=== PATIENT | female | born 1990 | race Caucasian/White ===

== ENCOUNTER 2021-04-23 16:08 | Inpatient (IN) | payer BC ==
[~2021-04-23] VITALS: Ht 162.6 cm; Wt 79.5 kg
[2021-04-23] VITALS (22 sets, daily range): BP systolic 101–147; BP diastolic 60–75; PULSE 70–88; TEMP 97.5–98.1
--- NOTE | 2021-04-23 16:10 | NUR ---
Admits to L&D for c/o contractions beginning around 1330 this afternoon, every 2-3 minutes apart. C/O back labor. Denies any leaking of fluid, vaginal bleeding. Reports positive movement. States she was 2 cm dilated at last OB visit.
--- NOTE | 2021-04-23 16:27 | NUR ---
Allowed off of EFM at this time, as noted Category I strip, intermittent monitoring per protocol. Assisted up to birthing ball for comfort per patient request.
[2021-04-23] MEDS ORDERED: PRENATAL TABLET PO (16:42)
[2021-04-23] MEDS ORDERED: LEXAPRO20 MG (16:42)
[2021-04-23] MEDS ORDERED: SYNTHROID0.075 MG/T PO (16:42)
--- NOTE | 2021-04-23 17:10 | NUR ---
Placed back on EFM @ this time, repeat SVE completed.
--- NOTE | 2021-04-23 17:16 | NUR ---
Ana Pickard CRNA, notified of patient admission status, .
--- NOTE | 2021-04-23 17:30 | NUR ---
x3 unsuccessful IV start attempts by this newswriter.
--- NOTE | 2021-04-23 17:35 | NUR ---
and Ana Pickard CRNA, in-house.
--- NOTE | 2021-04-23 17:40 | NUR ---
Donna Larsen RN, in to attempt IV start, unsuccessful.
--- NOTE | 2021-04-23 17:50 | NUR ---
Ana Pickard CRNA, in to attempt IV start.
--- NOTE | 2021-04-23 17:54 | NUR ---
Allowed off of EFM during epidural placement, as noted Category I strip, no oxytocin infusing at this time.
--- NOTE | 2021-04-23 18:09 | NUR ---
Placed back on EFM following epidural placement.
--- NOTE | 2021-04-23 18:14 | NUR ---
assessment technician here to draw, as noted, unable to obtain lab work off of IV start.
[2021-04-23 18:34] LABS: BASO # 0.1 (0.0-0.2); BASO % 0.4 % (0.0-2.0); EOS % 0.1 % (0-4.0); GRAN # 11.5 (1.4-6.5); GRAN % 80.2 % (42.2-75.2); LYMPH # 1.9 (1.2-3.4); LYMPH % 13.4 % (20.0-51.0); MEAN CELL VOLUME 94 fl (80.0-100.0); MEAN CORPUSCULAR HEMOGLOBIN 32 pg (27.0-31.0); MEAN CORPUSCULAR HGB CONC 34 g/dl (33.0-37.0); MEAN PLATELET VOLUME 9.2 fl (7.4-10.4); MONO # 0.8 (0.1-0.6); MONO % 5.3 % (1.7-9.3); PLATELET COUNT 276 K/mm3 (130-400); RED BLOOD COUNT 3.47 M/mm3 (4.10-5.30); REDCELL DISTRIBUTION WIDTH-CV 14.3 % (11.5-14.5)
[2021-04-23 18:37] LABS: HEMATOCRIT 32.6 % (37.0-47.0)
--- NOTE | 2021-04-23 18:50 | NUR ---
1836- ROLES IN ROOM TO PERFORM AROM, SVE OF 5/70-80/-2, CLEAR FLUID. PT IS NAUSEATED. 183- ZOFRAN 4MG IV GIVEN. 184- LATE DECEL NOTED, PT REMAINS NAUSEATED, BP DOWN AT 104/67. 184- EPHEDRINE 10MG IV GIVEN. 1850- BP INCREASED TO 123/69, NO FURTHER LATE DECELS NOTED WITH FHT'S RUNNING AT BASELINE OF 125 WITH MODERATE VARIABILITY, PT STATES NAUSEA HAS SUBSIDED.
--- NOTE | 2021-04-23 21:18 | NUR ---
2050- PT CALLS OUT FOR ASSISTANCE, STATES FEELING NAUSEOUS. 2052- BP DOWN AT 90/53, EPHEDRINE 10MG IV GIVEN. 2055- BP INCREASED TO 121/69, PT STATES NAUSEA SUBSIDING. 2099- SVE OF COMPLETE/0. THIS NURSE OUT OF ROOM TO GATHER SUPPLIES FOR DELIVERY. PT RESTING COMFORTABLY WITH EPIDURAL. 2105- CHAU DC'D 225ML URINE OUT. PERICARE PROVIDED. 2109- ONE PRACTICE PUSH WITH THIS NURSE. PT PUSHING WELL, INSTRUCTED TO STOP. 2110- DR. BROWNING CALLED FOR DELIVERY. HEART TONES LOST, ATTEMPTING TO ADJUST US. 2111- CONTINUE DIFFICULTY TRACING FHT'S, COVERS PULLED BACK, HEAD HAD DELIVERED. PT INSTRUCTED TO PUSH. SPONTANEOUS VAGINAL DELIVERY OF VIABLE BABY GIRL. FOB INSTRUCTED TO PULL CALL LIGHT FOR ASSISTANCE. BABY DRIED AND STIMULATED. EVE, RN, Jalen FAJARDO, RN IN ROOM TO ASSIST. CORD CLAMPED AND CUT BY THIS NURSE. BABY TO MOTHER'S CHEST, BABY CARES ASSUMED BY Vanessa BAH RN. 2113- ROLES IN ROOM. 2117- SPONTANEOUS DELIVERY OF INTACT PLACENTA, PITOCIN STARTED AT 333ML/HR PER PROTOCOL. NO REPAIR NECESSARY. 2124- RECOVERY STARTED.
[2021-04-24 00:10] VITALS: BP 95/54; PULSE 74
--- NOTE | 2021-04-24 01:05 | NUR ---
PT'S LEFT LEG REMAINS NUMB AND UNABLE TO LIFT. PT DENIES SENSATION TO VOID AT THIS TIME. STRAIGHT CATH PERFORMED, 1100MLS OUT. PERICARE PERFORMED. PT UP TO SIDE OF BED, EPIDURAL CATHETER REMOVED, TIP INTACT AND PT TOLERATED WELL. PAD AND MESH UNDERWEAR ON. PT TO WHEELCHAIR, TRANSFERRED TO AND ORIENTED TO ROOM.
[2021-04-24 05:45] VITALS: BP 99/61; PULSE 75; TEMP 98.3
[2021-04-24 08:30] VITALS: BP 112/66; PULSE 70; TEMP 98.1
[2021-04-24 12:45] VITALS: BP 111/73; PULSE 79; TEMP 98.1
[2021-04-24 17:24] VITALS: BP 109/69; PULSE 79; TEMP 98
[2021-04-24 21:30] VITALS: BP 105/56; PULSE 66; TEMP 97.9
--- NOTE | 2021-04-25 09:13 | NUR ---
Initial visit; Parents thanked Editorial Intern for looking in on them, offering congratulations for the of their daughter and God's blessings. Editorial Intern thanked family for choosing [facility].
[2021-04-25 09:15] VITALS: BP 113/75; PULSE 71; TEMP 98
== END 2021-04-25 12:15 | disposition home or self-care (01) | DRG 807 ==
LOC: LDRO 16:08 → LDR 17:14 → OB 04-24 01:30
PROVIDERS: Obstetrics & Gynecology; ADMIT Obstetrics & Gynecology
PROC: 10E0XZZ Delivery of Products of Conception, External Approach (ICD-10-PCS; principal; 2021-04-23)
PROC: 3E033VJ Introduction of Other Hormone into Peripheral Vein, Percutaneous Approach (ICD-10-PCS; 2021-04-23)
DX: O34.211 Maternal care for low transverse scar from previous cesarean delivery (principal); Z37.0 Single live birth; O99.284 Endocrine, nutritional and metabolic diseases complicating childbirth; Z3A.39 39 weeks gestation of pregnancy; F32.9 Major depressive disorder, single episode, unspecified; E03.9 Hypothyroidism, unspecified
CPT/HCPCS: J2405; J2590; J7120